=== PATIENT | male | born 1925 | race Caucasian/White ===

== ENCOUNTER 2016-10-27 01:47 | Emergency (ER) | payer MEDICARE ==
[2016-02-08 10:52] VITALS: BMI 16.8
[~2016-10-27 01:47] MED LIST: BAYER CHEWABLE81 MG PO; CALTRATE-600600 MG PO; ISOSORBIDE DINI30 MG PO; MULTI-DAY VITAM1 TAB PO; NITROSTAT0.4 MG SL; PLAVIX75 MG PO; SYNTHROID25 MCG PO; SYNTHROID75 MCG PO; SYNTHROID88 MCG PO; ZANTAC150 MG PO; ZESTRIL40 MG PO; ZOCOR40 MG PO
== END 2016-10-27 03:35 | disposition home or self-care (01) ==
LOC: D.ER 01:47
DX: R11.10 Vomiting, unspecified (principal); C16.9 Malignant neoplasm of stomach, unspecified; I10 Essential (primary) hypertension; E87.5 Hyperkalemia

== ENCOUNTER 2016-11-16 21:16 | Emergency (ER) | payer MEDICARE ==
[2016-02-08 10:52] VITALS: BMI 16.8
[2016-11-16 22:25] LABS: BASOPHILS 0.2 % (0-2); EOSINOPHILS 1.3 % (0-7); HEMATOCRIT 39.3 % (42.0-54.0); HEMOGLOBIN 12.7 g/dL (13.5-17.5); IMMATURE GRANULOCYTES 1.6 % (0-5); LYMPHOCYTES 14.6 % (15-50); MCHC 32.3 g/dL (31.0-37.0); MCV 105.1 fL (80.0-100.0); MEAN PLATELET VOLUME 9.7 fL (7.4-10.4); MONOCYTES 10.8 % (2-11); NEUTROPHILS 71.5 % (40-80); PLATELET COUNT 144 10x3/uL (130-400); RBC 3.74 10x6/uL (4.20-6.10); RDW 12.8 % (11.5-14.5); WBC 6.1 10x3/uL (4.8-10.8)
[2016-11-16 22:59] LABS: ALBUMIN 2.9 g/dL (3.4-5.0); ALKALINE PHOSPHATASE 68 U/L (46-116); ALT (SGPT) 23 U/L (10-68); BILIRUBIN - TOTAL 0.38 mg/dL (0.2-1.3); CALC OSMOLALITY 284 mosm/kg (275-300); CALCIUM 8.8 mg/dL (8.5-10.1); CHLORIDE - SERUM 108 mmol/L (98-107); CREATININE - SERUM 1.3 mg/dL (0.6-1.3); GLUCOSE 94 mg/dL (74-106); POTASSIUM - SERUM 4.7 mmol/L (3.5-5.1); PROTEIN - SERUM 6.2 g/dL (6.4-8.2); SODIUM 141 mmol/L (136-145); UREA NITROGEN 23 mg/dL (7-18); eGFR NON AFRICAN AMERICAN 55 mL/min (90-120)
[2016-11-16 23:11] LABS: CKMB 2.1 U/L (0.0-3.6); CREATINE KINASE 40 UL (21-232)
== END 2016-11-17 | disposition left against medical advice (07) ==
LOC: D.ER 21:16
PROVIDERS: Emergency Medicine
DX: R07.9 Chest pain, unspecified (principal)

== ENCOUNTER 2016-12-05 15:20 | Observation (INO) | payer OTHER, MEDICARE ==
[~2016-12-05] VITALS: Ht 160 cm; Wt 54.5 kg
--- NOTE | ~2016-12-05 | HEMODYNAMI ---
PATIENT:BENY CHAVIS MEDICAL RECORD: [id number] : [birth year] LOCATION:[address] ADMISSION DATE: 12/05/16 Generatedon:12/06/201612:58 Patient name: BENY CHAVIS Patient #: [id number] SSN: DO B: 1925 Date of study: 12/06/2016 Page: Of Hemodynamic Procedure Report Patient Data Patient Demographics Procedure consent was obtained First Name: BENY Gender: Male Last Name: PALMIRA : 1925 [facility] Initial: JOHN Age: 89 year(s) Patient #: [id number] Race: Additional ID: [id number] Contact details [address]: [address] [place] [address] State: [place] City: [place] Zip code: [address] Past Medical History Allergies Allergen Reaction Date Comments Reported Sulfa drugs 09/02/2015 Other allergy 12/06/2016 Sulfa Admission Admission Data Admission Date: 12/05/2016 Admission Time: 18:47 Room #: 2125 Weight (lbs.): 121.25 Weight (kg.): 55 Procedure Procedure Types Cath Procedure Diagnostic Procedure C LH w/Coronaries Miscellaneous Procedures Moderate Sedation up to 15 minutes Procedure Description Procedure Date Procedure Date: 12/06/2016 Procedure Start Time: 12:43 Procedure End Time: 12:56 Procedure Staff Name Function Esteban Gonzalez MD Performing Physician Zoë Camejo RN Nurse Kilo Slade RT Scrub Reinaldo Damian RT Monitor Procedure Data Cath Procedure Fluoroscopy Diagnostic fluoroscopy Total fluoroscopy Time: 1.1 time: 1.1 min min Diagnostic fluoroscopy Total fluoroscopy dose: 317 dose: 317 mGy mGy Contrast Material Contrast Material Type Amount (ml) Isovue 300 57 Entry Location Entry Primary Successful Side Size Upsize Upsize Entry Closure Succes sful Closure Location (Fr) 1 (Fr) 2 (Fr) Remarks Device Remarks Femoral Right 5 Fr Vascade artery Closure System Estimated blood loss: 10 ml Diagnostic catheters Device Type Used For End Catheter Placement Cordis 5Fr Pigtail Procedure Catheter (MP) Cordis 5Fr JL 4.0 Procedure Catheter (MP) Cordis 5Fr 3DRC Catheter Procedure (MP) Procedure Complications No complications Procedure Medications Medication Administration Route Dosage Oxygen NC 2 l/min Heparin Flush Bag added to field 2 bags (1000units/500ml NS) Lidocaine 2% added to field 20 Versed I.V. 0.5 mg Fentanyl I.V. 50 mcg Hemodynamics Rest Heart Rate: 73 (bpm) Pressure Samples Time Site Value (mmHg) Purpose Heart Use Rate(bpm) 12:48 AO 93/64(68) Snapshot 64 Snapshots Pre Cath Intra NCS Post Cath Vital Signs Time Heart Resp SPO2 NIBP (mmHg) Rhythm Pain Sedation Rate (ipm) (%) Status Level (bpm) 12:39:46 73 16 99 147/83(120) NSR 0 (11) 10(A) , No pain 12:44:04 72 15 98 139/64(102) NSR 0 (11) 9(A) , No pain 12:48:20 61 18 98 125/56(96) NSR 0 (11) 9(A) , No pain 12:52:30 67 18 98 116/64(92) NSR 0 (11) 9(A) , No pain 12:53:48 68 16 97 114/60(85) NSR 0 (11) 9(A) , No pain Medications Time Medication Route Dose Verified Delivered Reason Notes Effec tiveness by by 12:42:19 Oxygen NC 2 Esteban Zoë Per l/min Carlos Camejo RN physician 12:42:27 Heparin Flush added 2 Esteban Orellana used for Bag to bags Carlos Gonzalez MD procedure (1000units/500ml field NS) 12:42:35 Lidocaine 2% added 20ml Esteban Orellana used for to vial Carlos Gonzalez MD procedure field 12:42:44 Versed I.V. 0.5 Esteban Zoë for mg Carlos Camejo RN sedation 12:42:51 Fentanyl I.V. 50 Esteban Zoë for mcg Carlos Camejo RN sedation Procedure Log Time Note 12:18:15 Patient Weight : 55 kg 12:18:38 Reinaldo LAURA(R) sent for patient. Start room use. 12:18:39 Time tracking: Regular hours 12:18:42 Plan of Care:Hemodynamics will remain stable., Cardiac rhythm will remain stable., Comfort level will be maintained., Respiratory function will remain adequate., Patient/ family verbilizes understanding of procedure., Procedure tolerated without complication., Recovers from procedure without complications.. 12:18:46 Is patient on blood thinner?Yes 12:18:50 ACC The patient was administered the following blood thiners within the last 24 hours: ACCPlavix 12:19:11 Load with Plavix at 0930 12/06/16. 12:30:58 Patient received from PCU to CCL 2 Alert and oriented. Tansferred to table in Supine position. 12:34:59 Warm blankets applied, and janeth hugger turned on for patient comfort. 12:34:59 Correct patient and procedure confirmed by team. 12:35:01 Signed procedure consent form obtained from patient. 12:35:02 ECG and BP/O2 sat monitors applied to patient. 12:37:18 Lab Result : Hemoglobin 12 g/dl 12:37:18 Lab Result : Hematocrit 37.3 % 12:37:18 Lab Result : BUN 25 mg/dl 12:37:18 Lab Result : Creatinine 1.3 mg/dl 12:38:35 H&P Date Dictated: 12/05/2016 Within 30 days and on chart.. 12:38:36 Pre-procedure instructions explained to patient. 12:38:36 Pre-op teaching completed and patient verbalized understanding. 12:38:37 Vital chart was started 12:38:38 Family in waiting room. 12:38:40 Patient NPO since Midnight. 12:38:52 Patient allergic to Other allergySulfa 12:38:54 Is the patient allergic to Iodine/contrast media? No. 12:38:56 Patient diabetic? No. 12:38:59 Previous problem with sedation/anesthesia? No ? 12:39:00 Snore? No 12:39:01 Sleep apnea? No 12:39:02 Deviated septum? No 12:39:08 Opens mouth fully? Yes 12:39:09 Sticks out tongue? Yes 12:39:10 Airway obstruction? No ? 12:39:13 Dentures? Yes In tight 12:39:20 Pre procedure: right dorsailis pedis pulse 1+ Palpable, but thready & weak; easily obliterated 12:39:31 Patient pain scale 0/10 ?. 12:39:40 IV patent on arrival in right antecubital with 0.9% NaCl at [facility]. 12:39:42 Lab results completed and on chart. 12:39:45 Right groin area was prepped with chlora-prep and draped in sterile fashion 12:39:46 Alarms reviewed by R. N. 12:39:46 Sharps counted by scrub and verified by R.N. 12:39:48 Use device set Femoral Dx 12:39:49 Tegaderm 4 x 4 opened to sterile field. 12:39:50 Acist Manifold opened to sterile field. 12:39:51 Acist Hand Control opened to sterile field. 12:39:52 Acist Syringe opened to sterile field. 12:39:53 Bag Decanter opened to sterile field. 12:39:53 Medline Cath Pack opened to sterile field. 12:39:53 Terumo 5Fr [place] Sheath opened to sterile field. 12:39:54 St Bradley 260cm J .035 wire opened to sterile field. 12:39:55 Diagnostic Infinity 5Fr Multipack catheter opened to sterile field. 12:40:02 Baseline sample Acquired. 12:41:22 Rhythm: sinus rhythm 12:41:52 Physician arrived 12:41:53 --------ALL STOP TIME OUT------ 12:41:53 Final Timeout: patient, procedure, and site verified with staff and physician. All members of the team are in agreement. 12:41:54 Right groin site verified by team. 12:41:57 Physical assessment completed. ASA score P 2 - A patient with mild systemic disease as per Esteban Gonzalez MD. 12:41:59 Sedation plan: IV Moderate Sedation Versed, Fentanyl 12:42:19 Oxygen 2 l/min NC was administered by Zoë Camejo RN; Per physician; 12:42:27 Heparin Flush Bag (1000units/500ml NS) 2 bags added to field was administered by Esteban Gonzalez MD; used for procedure; 12:42:35 Lidocaine 2% 20ml vial added to field was administered by Esteban Gonzalez MD; used for procedure; 12:42:44 Versed 0.5 mg I.V. was administered by Zoë Bashir RN; for sedation; 12:42:51 Fentanyl 50 mcg I.V. was administered by Zoë Camejo RN; for sedation; 12:43:17 Procedure started. 12:43:17 Full Disclosure recording started 12:43:20 Local anesthetic to right femoral artery with Lidocaine 2% by Esteban Gonzalez MD.INITIAL ACCESS ONLY 12:43:58 A 5 Fr sheath was inserted into the Right Femoral artery 12:44:01 Zero performed for pressure channel P1 12:45:14 A Cordis 5Fr Pigtail Catheter (MP) was advanced over the wire and used for Procedure. 12:47:30 LV angiography performed. 12:47:31 LV gram done using KHANNA 12:47:36 EF : 40 % 12:47:38 Injector settings: Ml/sec: 10, Volume: 20, 12:47:40 Catheter removed. 12:47:46 A Cordis 5Fr JL 4.0 Catheter (MP) was advanced over the wire and used for Procedure. 12:49:13 LCA angiography performed. 12:49:38 Catheter removed. 12:49:44 A Cordis 5Fr 3DRC Catheter (MP) was advanced over the wire and used for Procedure. 12:50:15 RCA angiography performed. 12:51:05 Catheter removed. 12:51:37 Vascade 5Fr Closure Device opened to sterile field. 12:52:21 Sheath removed intact; hemostasis achieved with Vascade Closure System to the Right Femoral artery. 12:52:23 Procedure ended.(Physican Out) 12:53:06 Fluoroscopy time 01.10 minutes. 12:53:10 Fluoroscopy dose: 317 mGy 12:53:10 Flurop Dose total: 317 12:53:17 Contrast amount:Isovue 300 57ml. 12:53:18 Sharps counted by scrub and verified by R.N. 12:53:19 Insertion/operative site no bleeding no hematoma. 12:53:21 Post Procedure Pulses reassessed and unchanged 12:53:24 Post-procedure physical assessment completed. ASA score P 2 - A patient with mild systemic disease as per Esteban Gonzalez MD. 12:53:26 Post procedure rhythm: unchanged. 12:53:29 Estimated blood loss: 10 ml 12:53:30 Post procedure instruction explained to patient.Patient verbalizes understanding. 12:53:31 Patient needs reinforcement of post procedure teaching. 12:53:35 Procedure and supply charges have been captured, reviewed, submitted and are correct. 12:53:38 Procedure Complication : No complications 12:53:57 See physician's report for complete and final results. 12:54:01 Report given to PCU. 12:56:08 Vital chart was stopped 12:56:11 Patient transfered to PCU with Bed. 12:56:22 Procedure ended. 12:56:22 Full Disclosure recording stopped 12:56:37 End room use (Document Last) Device Usage Item Name Manufacture Quantity Catalog Number Hospital Part Current Minima l Lot# / Charge Number Stock Stock Serial# Code Tegaderm 4 3M 1 [id number] [id number] [id number] 5 x 4 Acist Acist 1 89176 243477 824080 105070 5 Manifold [employer] Inc Acist Hand Acist 1 67364 564919 362456 727585 5 Control Medical Systems Inc Acist Acist 1 60810 824614 400434 752456 20 Syringe Medical Systems Inc Bag Microtek 1 2002S 979316 31113 697465 5 Decanter Medical Inc. Medline Cardinal 1 [id number] 943849 92088 695979 5 Cath Pack Health Terumo 5Fr Terumo 1 [id number] 872460 916935 426797 [address] Bradley 1 [id number] 289456 516801 337418 30 260cm J .035 wire Diagnostic Cardinal 1 [id number] 645990 50076 707339 30 Infinity Health 5Fr Multipack catheter Cordis 5Fr Cardinal 1 125858 5 Pigtail Health Catheter (MP) Cordis 5Fr Cardinal 1 437382 5 JL 4.0 Health Catheter (MP) Cordis 5Fr Cardinal 1 189049 5 3DRC Health Catheter (MP) Vascade Cardiva 1 [id number] 906587 80424 085031 10 5Fr Medical, Closure Inc. Device Signature Audit [place] Stage Time Signature Unsigned Intra-Procedure 12/06/2016 Reinaldo Damian 12:58:14 PM RT(R) Signatures Monitor : Reinaldo Damian RT Signature : Date : Time : [facility] [address] [place] [address]
[2016-12-05 16:25] LABS: BASOPHILS 0.2 % (0-2); EOSINOPHILS 1.5 % (0-7); HEMATOCRIT 37.3 % (42.0-54.0); IMMATURE GRANULOCYTES 1.2 % (0-5); LYMPHOCYTES 14.9 % (15-50); MCH 33.8 pg (26.0-34.0); MCHC 32.2 g/dL (31.0-37.0); MCV 105.1 fL (80.0-100.0); MEAN PLATELET VOLUME 9.9 fL (7.4-10.4); MONOCYTES 12.5 % (2-11); NEUTROPHILS 69.7 % (40-80); PLATELET COUNT 154 10x3/uL (130-400); RBC 3.55 10x6/uL (4.20-6.10); RDW 13.3 % (11.5-14.5); WBC 5.9 10x3/uL (4.8-10.8)
[2016-12-05 16:51] LABS: ALBUMIN 3.2 g/dL (3.4-5.0); ANION GAP 10.1 mmol/L (8-16); BILIRUBIN - TOTAL 0.5 mg/dL (0.2-1.3); CALCIUM 8.6 mg/dL (8.5-10.1); CARBON DIOXIDE 26.3 mmol/L (21.0-32.0); CREATININE - SERUM 1.3 mg/dL (0.6-1.3); POTASSIUM - SERUM 4.4 mmol/L (3.5-5.1); PROTEIN - SERUM 6.1 g/dL (6.4-8.2)
[2016-12-05 16:58] LABS: TROPONIN-I 0.017 ng/mL (0.000-0.060)
[2016-12-05 20:28] VITALS: BP 157/86
[2016-12-05 22:41] VITALS: BP 157/86; Ht 160 cm; Wt 54.5 kg
[2016-12-05 23:54] VITALS: BP 98/46
[2016-12-06 04:05] VITALS: BP 99/48
[2016-12-06 08:02] VITALS: BP 134/73
[2016-12-06 09:42] LABS: CALC OSMOLALITY 287 mosm/kg (275-300); CALCIUM 8.6 mg/dL (8.5-10.1); CHLORIDE - SERUM 112 mmol/L (98-107); CKMB 2.3 U/L (0.0-3.6); CREATINE KINASE 91 UL (21-232); CREATININE - SERUM 1.2 mg/dL (0.6-1.3); GLUCOSE 91 mg/dL (74-106); POTASSIUM - SERUM 4.8 mmol/L (3.5-5.1); SODIUM 142 mmol/L (136-145); UREA NITROGEN 27 mg/dL (7-18); eGFR NON AFRICAN AMERICAN 61 mL/min (90-120)
[2016-12-06 09:49] LABS: BASOPHILS 0.2 % (0-2); HEMATOCRIT 38.1 % (42.0-54.0); HEMOGLOBIN 12.4 g/dL (13.5-17.5); IMMATURE GRANULOCYTES 0.9 % (0-5); LYMPHOCYTES 14.8 % (15-50); MCH 34.3 pg (26.0-34.0); MCHC 32.5 g/dL (31.0-37.0); MCV 105.5 fL (80.0-100.0); MEAN PLATELET VOLUME 9.8 fL (7.4-10.4); MONOCYTES 9.3 % (2-11); NEUTROPHILS 72.8 % (40-80); PLATELET COUNT 142 10x3/uL (130-400); RBC 3.61 10x6/uL (4.20-6.10); RDW 13.2 % (11.5-14.5); WBC 6.4 10x3/uL (4.8-10.8)
[2016-12-06 11:43] VITALS: BP 135/86
--- NOTE | 2016-12-07 07:57 | DS ---
PATIENT:BENY KEE :[birth year] MEDICAL RECORD: [id number] DISCHARGE SUMMARY ADMISSION DATE: 12/05/16 DISCHARGE DATE: 12/06/16 DIAGNOSES: 1. Angina. 2. Coronary artery disease. 3. Hypertension. HOSPITAL COURSE: Mr. Kee presents with anginal symptomatology; however, cardiac catheterization revealed no new coronary artery disease. He does have a total occlusion of the LAD that is unchanged. Continue medical management of the coronary artery disease and chronic stable angina. TRANSINT:[id number] Voice Confirmation ID: [id number] DOCUMENT ID: [id number] JORDANA WAHL MD at 0757 CC: [id number] DICTATION DATE: 12/06/16 1254 PASSENGER CAR UPHOLSTERER APPRENTICE: 12/07/16 0213 DIS IN 12/06/16 [facility] [address] [place] [address]
--- NOTE | 2016-12-07 07:57 | HP ---
PATIENT: BENY KEE MEDICAL RECORD: [id number] ACCOUNT: [id number] LOCATION:[address] : [birth year] ADMISSION DATE: 12/05/16 HISTORY AND PHYSICAL EXAMINATION DIAGNOSES: 1. Unstable angina. 2. Coronary artery disease. 3. Previous PTCA stent. 4. Hypertension. 5. Hyperlipidemia. HISTORY OF PRESENT ILLNESS: Mr. Kee presents with anginal symptomatology for the past 2 days. He has had multiple episodes of chest pain. He had severe episodes of chest pain yesterday. Initially, the episodes of chest pain were with any minimal exertion. However, yesterday, he had over an hour. Pain was at rest. His troponin is normal. His EKG is with a left bundle branch block, but this is not new. He has continued to have minor episodes of chest pain this morning while in the hospital in bed at rest. PHYSICAL EXAMINATION: GENERAL APPEARANCE: Well-nourished, well-developed, appears stated age. Level of distress, comfortable. PSYCHIATRIC: Mental status, alert, normal affect. Orientation, oriented to time, place and person. EYES: Lids and conjunctiva, noninjected. No discharge, no pallor. ENT: Lips, teeth, gums, normal dentition. Oropharynx, no cyanosis, no pallor. NECK: Carotid arteries, bilateral normal upstroke, no bruits, no thrills. JUGULAR VEINS: No jugular venous pressure or distention. CERVICAL LYMPH NODES: Nontender, nonenlarged. THYROID: Not enlarged. Nontender. No nodules. LUNGS: Respiratory effort, unlabored. CHEST: Normal curvature. No thoracic deformity. No chest wall tenderness. Percussion, resonant. Auscultation, clear. No wheezes, no rales, no rhonchi. CARDIOVASCULAR: Precordial exam, nondisplaced. No heaves or pericardial thrills. Rate and rhythm, regular. Heart sounds, normal S1, normal S2. No S3, no gallop, no rub. Systolic murmur, not heard. Diastolic murmur, not heard. EXTREMITIES: No cyanosis, no edema. Peripheral pulses, full and equal in all extremities, except as noted. No bruits appreciated. ABDOMEN: Soft, nondistended. Normal aorta. No bruit. Nontender. No masses. Liver, nontender, no hepatomegaly. Spleen, nontender, no splenomegaly. MUSCULOSKELETAL: No joint tenderness. No joint swelling. No erythema. NEUROLOGICAL: Normal gait, normal strength, normal tone. SKIN: Warm and dry. REVIEW OF SYSTEMS: The patient reports easy bruising but reports no swollen glands. The patient reports no fever, no night sweats, no significant weight gain, no significant weight loss. No significant exercise tolerance. The patient reports no dry eyes, no irritation, no vision change. Patient reports no difficulty hearing and no ear pain. Patient reports no frequent nose bleeds or nose and sinus problems. Patient reports on arm pain on exertion. No shortness of breath while lying down. No history of heart murmur. Patient reports no cough, no wheezing or coughing up blood. Patient reports no abdominal pain, no vomiting. Normal appetite. No diarrhea and not vomiting blood. No nausea and no constipation. Patient reports no incontinence. No HISTORY AND PHYSICAL [id number] BENY KEE difficulty urinating. No hematuria. No increased frequency. Patient reports no muscle aches. No weakness, no arthralgias, no back pain. No swelling of the extremities. Patient reports no abnormal mole, no jaundice, no rashes. Reports no loss of consciousness. No weakness and no numbness. No seizures, dizziness, or headaches. The patient reports no depression, no sleep disturbance, feeling safe in a relationship and no alcohol abuse. Patient reports on fatigue. Reports no runny nose or sinus pressure. No itching, no hives, and no frequent sneezing. Positive for PCI. Negative for VT. Negative for congestive heart failure. Negative for CVA. Negative for malignancy. Negative for bleeding. Negative for dysrhythmia -- atrial fibrillation. OVERALL IMPRESSION: Chest pain in an unstable fashion just like that of his previous angina. Most likely, he has recurrent hemodynamically significant coronary artery disease. We will proceed with coronary angiography. Further care depends upon findings of the angiography. TRANSINT:[id number] Voice Confirmation ID: [id number] DOCUMENT ID: [id number] JORDANA WAHL MD at 0757 CC: [id number] DICTATION DATE: 12/06/16905 DEPUTY SHERIFF K9 HANDLER: 12/06/16 0944 DIS IN 12/06/16 [facility] [address] [place] [address]
--- NOTE | 2016-12-07 07:57 | OP ---
PATIENT NAME: BENY CHAVIS MEDICAL RECORD: [id number] :[birth year] LOCATION:[address] ADMISSION DATE:12/05/16 SURGEON: JORDANA WAHL MD DATE OF OPERATION: 12/06/2016 PROCEDURES: 1. Left heart catheterization. 2. Selective coronary angiography. 3. Left ventriculogram. INDICATIONS: Angina and coronary artery disease. PROCEDURE IN DETAIL: After informed consent was obtained and after detailed explanation of risks, benefits as well as alternative therapies, the patient elected to proceed with angiogram and heart catheterization. The right femoral area was prepped and draped in normal sterile fashion. The right femoral artery was cannulated via modified Seldinger technique with placement of 5-Sloven[place] sheath. All catheters exchanged through this sheath. FINDINGS: The left ventriculogram was performed in the standard 30-degree KHANNA view, reveals global hypokinesis, ejection fraction 40%. SELECTIVE CORONARY ANGIOGRAPHY: 1. Left main showed no significant angiographic disease. 2. Left anterior descending has a chronic total occlusion in the mid vessel. Distal vessel reconstitutes via [id number] collaterals, this is unchanged from previous angiography. 3. Left circumflex has mild irregularities, but no flow-limiting stenosis. 4. Right coronary has previously placed stents, these are widely patent with no significant restenosis. OVERALL IMPRESSION: No restenosis of the previously placed stents, chronic total occlusion of the LAD. Continue medical management of the angina and coronary artery disease. TRANSINT:[id number] Voice Confirmation ID: [id number] DOCUMENT ID: [id number] JORDANA WAHL MD at 0757 CC: [id number] DICTATION DATE: 12/06/16 1256 PREMIX OPERATOR CONCENTRATE: 12/06/16 1412 DIS IN 12/06/16 [facility] [address] [place] [address]
== END 2016-12-06 16:22 | disposition home or self-care (01) ==
LOC: D.ER 15:20 → D.M2 18:47 → OBSVTIME 18:47 → D.M2 12-06 16:22
PROVIDERS: Emergency Medicine; ADMIT Internal Medicine Interventional Cardiology
DX: I25.118 Atherosclerotic heart disease of native coronary artery with other forms of angina pectoris (principal); I10 Essential (primary) hypertension; Z95.5 Presence of coronary angioplasty implant and graft; E78.5 Hyperlipidemia, unspecified